=== PATIENT | female | born 1995 | race Two or more races ===

== ENCOUNTER 2020-09-21 12:36 | Observation (INO) | payer MEDICAID, OTHER | END 2020-09-21 14:13 | disposition home or self-care (01) | LOC: LDRP 12:36 | PROVIDERS: ADMIT Specialist; ATTEND Specialist | DX: O46.93 Antepartum hemorrhage, unspecified, third trimester (principal); Z3A.28 28 weeks gestation of pregnancy | CPT/HCPCS: 59025; 76815; 81002; G0378 ==

== ENCOUNTER 2020-10-15 13:11 | Observation (INO) | payer MEDICAID ==
[2020-10-15] MEDS ORDERED: PREN-96 PO (15:35)
== END 2020-10-15 16:50 | disposition home or self-care (01) ==
LOC: LDRP 13:11
PROVIDERS: ADMIT Obstetrics & Gynecology; ATTEND Obstetrics & Gynecology
DX: O42.913 Preterm premature rupture of membranes, unspecified as to length of time between rupture and onset of labor, third trimester (principal); O26.893 Other specified pregnancy related conditions, third trimester; N89.8 Other specified noninflammatory disorders of vagina; Z3A.31 31 weeks gestation of pregnancy
CPT/HCPCS: 59025; 76818; 81002; 84112; G0378; Q0114

== ENCOUNTER 2020-10-20 09:00 | Observation (INO) | payer MEDICAID ==
[~2020-10-20 09:00] MED LIST: PREN-96 PO
== END 2020-10-20 09:51 | disposition home or self-care (01) ==
LOC: LDRP 09:00
PROVIDERS: ADMIT Specialist; ATTEND Specialist
DX: O44.43 Low lying placenta NOS or without hemorrhage, third trimester (principal); O35.8XX0 Maternal care for other (suspected) fetal abnormality and damage, not applicable or unspecified; Z3A.32 32 weeks gestation of pregnancy
CPT/HCPCS: 59025; 76818; 81002; G0378

== ENCOUNTER 2020-10-27 16:12 | Observation (INO) | payer MEDICAID | END 2020-10-27 17:35 | disposition home or self-care (01) | LOC: LDRP 16:12 | PROVIDERS: ADMIT Specialist; ATTEND Specialist | DX: O44.43 Low lying placenta NOS or without hemorrhage, third trimester (principal); O35.8XX0 Maternal care for other (suspected) fetal abnormality and damage, not applicable or unspecified; Z3A.33 33 weeks gestation of pregnancy | CPT/HCPCS: 59025; 76818; 81002; G0378 ==

== ENCOUNTER 2020-11-03 16:45 | Observation (INO) | payer MEDICAID | END 2020-11-03 17:55 | disposition home or self-care (01) | LOC: LDRP 16:45 | PROVIDERS: ADMIT Obstetrics & Gynecology; ATTEND Obstetrics & Gynecology | DX: O26.833 Pregnancy related renal disease, third trimester (principal); N13.30 Unspecified hydronephrosis; Z3A.34 34 weeks gestation of pregnancy | CPT/HCPCS: 59025; 76818; 81002; G0378 ==

== ENCOUNTER 2020-11-10 19:43 | Observation (INO) | payer MEDICAID ==
[~2020-11-10] VITALS: Ht 160 cm; Wt 88.5 kg
[2020-11-10] MEDS ORDERED: PREN-125 OR (20:12)
== END 2020-11-10 22:38 | disposition home or self-care (01) ==
LOC: LDRP 19:43
PROVIDERS: ADMIT Specialist; ATTEND Specialist
DX: O99.891 Other specified diseases and conditions complicating pregnancy (principal); N13.30 Unspecified hydronephrosis; O44.43 Low lying placenta NOS or without hemorrhage, third trimester; Z3A.35 35 weeks gestation of pregnancy; Z91.040 Latex allergy status
CPT/HCPCS: 59025; 76818; 81002; G0378

== ENCOUNTER 2020-11-17 08:32 | Observation (INO) | payer MEDICAID ==
[~2020-11-17 08:32] MED LIST changes: +PREN-125 OR
== END 2020-11-17 17:15 | disposition home or self-care (01) ==
LOC: LDRP 16:05
PROVIDERS: ADMIT Obstetrics & Gynecology; ATTEND Obstetrics & Gynecology
DX: O99.891 Other specified diseases and conditions complicating pregnancy (principal); N13.30 Unspecified hydronephrosis; Z3A.36 36 weeks gestation of pregnancy
CPT/HCPCS: 59025; 76818; 81002; G0378

== ENCOUNTER 2020-11-24 08:53 | Observation (INO) | payer MEDICAID | END 2020-11-24 17:50 | disposition home or self-care (01) | LOC: LDRP 16:15 | PROVIDERS: ADMIT Specialist; ATTEND Specialist | DX: O99.891 Other specified diseases and conditions complicating pregnancy (principal); N13.30 Unspecified hydronephrosis; Z91.040 Latex allergy status; Z3A.37 37 weeks gestation of pregnancy | CPT/HCPCS: 59025; 76818; 81002; 94760; G0378 ==

== ENCOUNTER 2020-12-01 15:40 | Observation (INO) | payer MEDICAID | END 2020-12-01 17:20 | disposition home or self-care (01) | LOC: LDRP 15:40 | PROVIDERS: ADMIT Obstetrics & Gynecology; ATTEND Obstetrics & Gynecology | DX: O26.833 Pregnancy related renal disease, third trimester (principal); N13.30 Unspecified hydronephrosis; Z3A.38 38 weeks gestation of pregnancy | CPT/HCPCS: 59025; 76818; 81002; 94760; G0378 ==

== ENCOUNTER 2020-12-08 10:59 | Observation (INO) | payer MEDICAID | END 2020-12-08 17:35 | disposition home or self-care (01) | LOC: LDRP 16:04 | PROVIDERS: ADMIT Specialist; ATTEND Specialist | DX: O99.891 Other specified diseases and conditions complicating pregnancy (principal); Z3A.39 39 weeks gestation of pregnancy; N13.30 Unspecified hydronephrosis | CPT/HCPCS: 59025; 76818; 81002; G0378 ==

== ENCOUNTER 2020-12-14 10:39 | Observation (INO) | payer MEDICAID | END 2020-12-14 11:49 | disposition home or self-care (01) | LOC: LDRP 10:39 | PROVIDERS: ADMIT Obstetrics & Gynecology; ATTEND Obstetrics & Gynecology | DX: O48.0 Post-term pregnancy (principal); O99.891 Other specified diseases and conditions complicating pregnancy; N13.30 Unspecified hydronephrosis; Z79.899 Other long term (current) drug therapy; Z91.040 Latex allergy status; Z3A.40 40 weeks gestation of pregnancy | CPT/HCPCS: 59025; 76818; 81002; G0378 ==

== ENCOUNTER 2020-12-15 09:15 | Inpatient (IN) | payer MEDICAID ==
[~2020-12-15] VITALS: Ht 30.5 cm; Wt 0.5 kg
[2020-12-15] MEDS ORDERED: WITCH HAZEL-GLYCERIN PAD TOP PRN (10:00)
[2020-12-15] MEDS ORDERED: DERMOPLAST 60ML BOTTLE TOP PRN (10:00)
[2020-12-15] MEDS ORDERED: PROMETHAZINE HCL 25 MG/ML 1ML IV PRN (10:00)
[2020-12-15] MEDS ORDERED: BUTORPHANOL TARTRATE 2 MG/1 ML VIAL IV PRN ×2 (10:00)
[2020-12-15] MEDS ORDERED: PHISODERM TOP SOLN 240ML BTL TOP PRN (10:00)
[2020-12-15] MEDS ORDERED: LACT. RINGERS/OXYTOCIN 20UNITS 500 ML IV ONE ×2 (10:00→10:30)
[2020-12-15] MEDS ORDERED: LACTATED RINGER'S 1,000 ML IV SCH (10:00)
[2020-12-15] MEDS ORDERED: LIDOCAINE 2%HCL (LOCAL ANESTH.) INJ 20ML MDV IJ PRN (10:00)
[2020-12-15 10:41] LABS: Basophils # (auto) 0 10 ^3/uL (0-0.2); Basophils % (auto) 0.2 % (0.0-2.0); Eosinophils # (auto) 0 10 ^3/uL (0-0.8); Eosinophils % (auto) 0.3 % (0.0-7.0); Hematocrit 35.3 % (36.0-46.0); Hemoglobin 12.5 g/dL (12.2-16.2); Lymphocytes # (auto) 1.3 10 ^3/uL (0.4-5.4); Mean Corpuscular Hemoglobin 31.5 pg (28.0-32.0); Mean Corpuscular Hgb Conc. 35.4 g/dL (32.0-36.0); Mean Corpuscular Volume 88.8 fL (80.0-100.0); Monocytes # (auto) 0.5 10 ^3/uL (0-1.3); Monocytes % (auto) 5.6 % (0.0-12.0); Neutrophils # (auto) 7.4 10 ^3/uL (1.6-8.6); Neutrophils % (auto) 79.9 % (37.0-80.0); Platelet Count (auto) 182 10^3/uL (140-450); Red Blood Cells 3.97 10^6/uL (4.0-5.20); Red Cell Distribution Width 14.5 % (11.8-14.3); White Blood Cell 9.2 10^3/uL (4.4-10.8)
[2020-12-15 10:47] LABS: Urine Amorphous Crystal FEW /hpf (None Seen); Urine Bacteria MANY /hpf (None Seen); Urine Blood 2+ /uL (Negative); Urine Hyaline Cast FEW /lpf (0 - 2); Urine WBC 30 /hpf (0 - 5); Urine WBC Clumps PRESENT /hpf (None Seen)
[2020-12-15 10:58] LABS: INR 0.92 (0.9-1.15); Partial Thromboplastin Time 26.3 sec (23.0-31.2)
[2020-12-15 11:06] LABS: Potassium 3.6 mmol/L (3.5-5.1)
[2020-12-15 11:11] LABS: Amphetamine Screen, Urine NEGATIVE (NEGATIVE); Barbiturate Scree,Urine NEGATIVE (NEGATIVE); Benzodiazephine Screen, Urine NEGATIVE (NEGATIVE); Cannabinoid Screen, Urine NEGATIVE (NEGATIVE); Cocaine Screen, Urine NEGATIVE (NEGATIVE); Opiate Scree,Urine NEGATIVE (NEGATIVE); Phencyclidine Screen, Urine NEGATIVE (NEGATIVE)
[2020-12-15 11:12] LABS: Albumin 2.5 g/dL (3.4-5.0); BUN/Creatinine Ratio 19.4; Bilirubin, Total 0.3 mg/dL (0.2-1.0); Calcium 8.7 mg/dL (8.5-10.1); Total Protein 6.8 g/dL (6.4-8.2)
[2020-12-15] MEDS ORDERED: LIDOCAINE HCL 2 %PF INJ 10ML AMP IJ ONE (15:15)
[2020-12-15] MEDS ORDERED: ePHEDrine SULFATE 50 MG/ML AMP IV ONE (15:15)
[2020-12-15] MEDS ORDERED: ROPIVACAINE HCL 200 ML EPI SCH (15:15)
[2020-12-15] MEDS ORDERED: LACTATED RINGER'S 1,000 ML IV ONE (15:15)
[2020-12-15] MEDS ORDERED: fentaNYL CITRATE 100 MCG/2 ML VL IV ONE (15:15)
[2020-12-15] MEDS ORDERED: LACT. RINGERS/OXYTOCIN 20UNITS 1,000 ML IV SCH (18:00)
[2020-12-15] MEDS ORDERED: miSOPROStol 100 mcg TAB SL ONE (19:30)
[2020-12-15] MEDS ORDERED: miSOPROStol 100 mcg TAB PR ONE (19:30)
[2020-12-15] MEDS ORDERED: IBUPROFEN 600 MG TAB PO PRN (20:00)
[2020-12-15 23:00] VITALS: BP 109/63
[2020-12-16 03:10] VITALS: BP 118/57
[2020-12-16 06:06] LABS: RPR Non Reactive (Non Reactive)
[2020-12-16 07:30] VITALS: BP 114/58
[2020-12-16] MEDS ORDERED: miSOPROStol 100 mcg TAB PO ONE (09:42)
[2020-12-16 10:55] VITALS: BP 114/52
[2020-12-16] MEDS ORDERED: ROPIVACAINE HCL 200 ML EPI SCH (15:15)
[2020-12-16 15:30] VITALS: BP 99/60
[2020-12-16 19:30] VITALS: BP 113/67
[2020-12-16 23:00] VITALS: BP 114/74
[2020-12-17 03:00] VITALS: BP 101/60
[2020-12-17 06:39] VITALS: BP 123/77
[2020-12-17 08:20] VITALS: BP 123/77
== END 2020-12-17 08:01 | disposition home or self-care (01) | DRG 560 ==
LOC: LDRP 09:15 → OBSVTOIN 09:55
PROVIDERS: ADMIT Specialist; ATTEND Specialist
PROC: 10E0XZZ Delivery of Products of Conception, External Approach (ICD-10-PCS; principal; 2020-12-15)
PROC: 10907ZC Drainage of Amniotic Fluid, Therapeutic from Products of Conception, Via Natural or Artificial Opening (ICD-10-PCS; 2020-12-15)
PROC: 0KQM0ZZ Repair Perineum Muscle, Open Approach (ICD-10-PCS; 2020-12-15)
PROC: 3E0R3BZ Introduction of Anesthetic Agent into Spinal Canal, Percutaneous Approach (ICD-10-PCS; 2020-12-15)
PROC: 00HU33Z Insertion of Infusion Device into Spinal Canal, Percutaneous Approach (ICD-10-PCS; 2020-12-15)
DX: O70.1 Second degree perineal laceration during delivery (principal); Z20.822 Contact with and (suspected) exposure to COVID-19; Z37.0 Single live birth; Z3A.40 40 weeks gestation of pregnancy
CPT/HCPCS: 36415; 59025; 59409; 62282; 80053; 80307; 81001; 85025; 85610; 85730; 86592; 86762; 86850; 86900; 86901; 87426; 94760; 96360; 96361; 96365; 96366; G0378; J2590

== ENCOUNTER 2023-03-20 07:16 | Emergency (ER) | payer MEDICAID ==
[~2023-03-20] VITALS: Ht 160 cm; Wt 82.7 kg
[2023-03-20 07:23] VITALS: BP 111/82; PULSE 118; RESP 16; O2SAT 96
[2023-03-20] MEDS ORDERED: IBUPROFEN 600 MG TAB PO ONE (08:00)
[2023-03-20 09:09] LABS: Rapid Strep A Screen-Throat Negative
[2023-03-20 09:17] LABS: Rapid Influenza A Negative (Negative); Rapid Influenza B Negative (Negative)
[2023-03-20 09:21] VITALS: TEMP 98
[2023-03-20] MEDS ORDERED: IBUP1TAB5 PO (09:28)
[2023-03-20] MEDS ORDERED: LIDO2SOL26 OR (09:28)
[2023-03-20] MEDS ORDERED: CETI10CA PO (09:28)
== END 2023-03-20 09:46 | disposition home or self-care (01) ==
LOC: ER 07:16
DX: J02.8 Acute pharyngitis due to other specified organisms (principal); B97.89 Other viral agents as the cause of diseases classified elsewhere; Z91.040 Latex allergy status
CPT/HCPCS: 87070; 87804; 87880

== ENCOUNTER 2024-06-07 08:39 | Emergency (ER) | payer MEDICAID ==
[~2024-06-07] VITALS: Ht 160 cm; Wt 84.1 kg
[~2024-06-07 08:39] MED LIST changes: +CETI10CA PO; +IBUP1TAB5 PO; +LIDO2SOL26 OR
--- NOTE | 2024-06-07 09:43 | ED.PDOC ---
GI ASSESSMENT HPI Comments 29 y.o female presents to the ED for a chief complaint of diffused abdominal pain associated with fevers, nausea, vomiting and diarrhea that started 3-4 days ago. Patient describes pain as sharp, constant and has no alleviating or precipitating factors. Patient was seen at urgent care recently for complaint, was tested for URI illnesses and UA analysis which all came back normal. Patient was sent home and advised to take Tylenol as needed but states no relief with medication. She denies any sweats, recent contact exposure, bloody stool, hematemesis, or urinary symptoms. No substance, alcohol or tobacco use. She denies any medical history. Chief Complaint: Abdominal Pain Time Seen by MD: 09:30 Primary Care Provider: MIGUEL ANGEL Reviewed Notes: Nurses Notes, Medications, Allergies Allergies: Coded Allergies: Latex (Verified Allergy, Unknown, 11/10/20) Home Meds Active Scripts Nitrofurantoin Monohydrate Mac (Macrobid) 100 Mg Cap, 100 MG PO BID for 5 Days, #10 CAP Prov:NIXON HERNANDEZ MD 06/07/24 Lidocaine HCl (Mouth-Throat) (Lidocaine HCl Viscous) 2 % Daniella, 10 ML OR Q4HPRN PRN for 5 Days, #120 ML Gargle and spit Prov:BETO CALVILLO NP 03/20/23 Cetirizine Hcl (Zyrtec Allergy) 10 Mg Cap, 10 MG PO DAILY PRN for 10 Days, #10 CAP 0 Refills Prov:BETO CALVILLO NP 03/20/23 Ibuprofen Micronized (Ibuprofen) 600 Mg Tab, 600 MG PO Q6HPRN PRN for 5 Days, #20 TAB Prov:BETO CALVILLO NP 03/20/23 Reported Medications Vitamins W/ Ferrous S (CLINICAL NUTRIENTS PRENAT) Tab, 1 OR for SUPPLEMENT, TAB 11/10/20 Vit W/ Ferrous Fumara ( One Daily) Daily Tab, 1 TAB PO DAILY, #90 TAB 3 Refills 10/15/20 Information Source: Patient Mode of Arrival: Ambulatory Timing: Days (4) Duration: Since onset Quality: Sharp Vomitus: Hard Stool: Loose Severity: Moderate Recent: None Recent Hx of: None Pain Location: Diffuse Modifying Factors: Nothing Associated sign and symptoms: Nausea, Vomiting, Diarrhea, Abdominal Pain Past Medical History PAST MEDICAL HISTORY: Denies Surgical History: Tonsillectomy [employer]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 History Family History Family History: Reviewed,noncontributory to illness Social History Smoker: Non-Smoker Alcohol: Denies ETOH Use Drugs: Denies Drug Use Lives In: Home Constitutional: reports: fever; denies: chills, diaphoresis, fatigue, malaise, sweats, weakness, others EENTM: denies: blurred vision, double vision, ear bleeding, ear discharge, ear drainage, ear pain, ear ringing, eye pain, eye redness, hearing loss, mouth pain, mouth swelling, nasal discharge, nose bleeding, nose congestion, nose pain, photophobia, tearing, throat pain, throat swelling, voice changes, others Respiratory: denies: cough, hemoptysis, orthopnea, SOB at rest, shortness of breath, SOB with excertion, stridor, wheezing, others Cardiovascular: denies: chest pain, dizzy spells, diaphoresis, Dyspnea on exertion, edema, irregular heart beat, left arm pain, lightheadedness, palpitations, PND, syncope, others Gastrointestinal: reports: abdominal pain, diarrhea, nausea, vomiting; denies: abdomen distended, blood streaked bowels, constipated, dysphagia, difficulty swallowing, hematemesis, melena, poor appetite, poor fluid intake, rectal bleeding, rectal pain, others Genitourinary: denies: abnormal vagina bleeding, burning, dyspareunia, dysuria, flank pain, frequency, hematuria, incontinence, pain, , vagina discharge, urgency, others Neurological: denies: dizziness, fainting, headache, left sided numbness, left sided weakness, numbness, paresthesia, pre-existing deficit, right sided numbness, right sided weakness, seizure, speech problems, tingling, tremors, weakness, others Musculoskeletal: denies: back pain, gout, joint pain, joint swelling, muscle pain, muscle stiffness, neck pain, others Integumetry: denies: bruises, change in color, change in hair/nails, dryness, laceration, lesions, lumps, rash, wounds, others Allergic/Immunocompromised: denies: Difficulty Healing, Frequent Infections, Hives, Itching, others Hematologic/Lymphatic: denies: anemia, blood clots, easy bleeding, easy bruising, swollen glands, others Endocrine: denies: excessive hunger, excessive sweating, excessive thirst, excessive urination, flushing, intolerance to cold, intolerance to heat, unexplained weight gain, unexplained weight loss, others Psychiatric: denies: anxiety, bipolar disorder, depression, hopeless, panic disorder, schizophrenia, sleepless, suicidal, others All Other Systems: Reviewed and Negative Physical Exam General Appearance: Moderate Distress HEENT: Normal ENT Inspection, Pharynx Normal, TMs Normal Neck: Full Range of Motion, Non-Tender, Normal, Normal Inspection Respiratory: Chest Non-Tender, Lungs Clear, No Accessory Muscle Use, No Respiratory Distress, Normal Breath Sounds Cardiovascular: No Edema, No JVD, No Murmur, No Gallop, Normal Peripheral Pulses, Regular Rate/Rhythm Breast Exam: Deferred Gastrointestinal: No Organomegaly, Non Tender, No Pulsatile Mass, Normal Bowel Sounds, Soft Genitalia: Deferred Pelvic: Deferred Rectal: Deferred Extremities: No calf tenderness, Normal capillary refill, Normal inspection, Normal range of motion, Non-tender, No pedal edema Musculoskeletal : Apperance: Normal Neurologic: Alert, 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 Was a procedure done?: No GI differential Dx Differential Diagnosis: Constipation, Diverticular disease, Esophagitis, Gastritis/PUD, Gastroenteritis, Inflammatory BD, UTI, Dehydration, Electrolyte Imbalance, Food Poisoning, , Bacterial, Viral X-Ray, Labs, Meds, VS Vital Signs Date Time Temp Pulse Resp B/P (MAP) Pulse Ox O2 Delivery O2 Flow Rate FiO2 06/07/24 12:06 117 18 97 Room Air* 0 21 06/07/24 12:05 98.1 115 20 116/80 (92) 98 98.1 06/07/24 09:06 97.7 110 16 125/79 (94) 97 Lab Test 06/07/24 10:18 06/07/24 09:00 Range/Units White Blood Count 7.3 4.4-10.8 10^3/uL Red Blood Count 4.57 4.0-5.20 10^6/uL Hemoglobin 13.9 12.2-16.2 g/dL Hematocrit 39.5 36.0-46.0 % Mean Corpuscular Volume 86.4 80.0-100.0 fL Mean Corpuscular Hemoglobin 30.3 28.0-32.0 pg Mean Corpuscular Hemoglobin Concent 35.1 32.0-36.0 g/dL Red Cell Distribution Width 13.1 11.8-14.3 % Platelet Count 231 140-450 10^3/uL Mean Platelet Volume 7.4 6.9-10.8 fL Neutrophils (%) (Auto) 76.6 37.0-80.0 % Lymphocytes (%) (Auto) 15.9 10.0-50.0 % Monocytes (%) (Auto) 7.1 0.0-12.0 % Eosinophils (%) (Auto) 0.1 0.0-7.0 % Basophils (%) (Auto) 0.3 0.0-2.0 % Neutrophils # (Auto) 5.6 1.6-8.6 10 ^3/uL Lymphocytes # (Auto) 1.2 0.4-5.4 10 ^3/uL Monocytes # (Auto) 0.5 0-1.3 10 ^3/uL Eosinophils # (Auto) 0 0-0.8 10 ^3/uL Basophils # (Auto) 0 0-0.2 10 ^3/uL Nucleated Red Blood Cells 0.1 % Sodium Level 135 L 136-145 mmol/L Potassium Level 3.3 L 3.5-5.1 mmol/L Chloride Level 98 98-107 mmol/L Carbon Dioxide Level 28 20-31 mmol/L Anion Gap 9 5-15 Blood Urea Nitrogen 8 L 9-23 mg/dL Creatinine 0.80 0.550-1.02 mg/dL Glomerular Filtration Rate Calc 103 >90 mL/min BUN/Creatinine Ratio 10.0 10.0-20.0 Serum Glucose 107 H 74-106 mg/dL Calcium Level 9.7 8.7-10.4 mg/dL Urine Color Yellow Yellow Urine Clarity Turbid H Clear Urine pH 6.5 5.0-9.0 Urine Specific [place] 1.022 1.001-1.035 Urine Protein 1+ H Negative Urine Ketones Negative Negative Urine Blood 2+ H Negative /uL Urine Nitrite Negative Negative Urine Bilirubin Negative Negative Urine Urobilinogen Normal Negative mg/dL Urine Leukocyte Esterase Trace Negative /uL Urine RBC 13 0 - 4 /hpf Urine WBC 7 0 - 5 /hpf Urine Squamous Epithelial Cells Mod <5 /hpf Urine Bacteria Few H None Seen /hpf Urine Mucus Few None Seen Urine Glucose Normal Normal mg/dL Current Medications Medications (Trade) Dose Ordered Sig/Lloyd Route Start Time Stop Time Status Last Admin Potassium Bicarbonate (Klor-Con/Ef) 25 meq ONCE ONCE PO 06/07/24 12:00 06/07/24 12:01 DC 06/07/24 12:04 Patient alert. Complaining of abdominal pain. Vitals stable. Answering all questions. Abdomen is soft nontender. Potassium is low. Was given potassium. Continues to have abdominal pain. Reviewed her history. Explained to the patient. Continue cardiac monitoring. No chest pain. No leg swelling. No shortness a breath. UA shows UTI. Heart rate upon discharge within normal limits. She is not on control. She is anxious. Does not meet any criteria. No discoloration. UA shows UTI. Was given prescription of Macrobid antibiotic. Was told to follow up with her primary care physician. Was told to come back if there is any problem. Time of 1ST Reevaluation: 09:39 Reevaluation 1ST: Unchanged Patient Education/Counseling: Diagnosis, Treatment, Prognosis Family Education/Counseling: No Family Present Departure 1 Departure Time of Disposition: 11:45 Impression: Primary Impression: Urinary tract infection Qualified Codes: N30.00 - Acute cystitis without hematuria Additional Impressions: Pyelonephritis Hypokalemia Disposition: 01 HOME / SELF CARE / HOMELESS Condition: Good e-Prescriptions Nitrofurantoin Monohydrate Mac (Macrobid) 100 Mg Cap 100 MG PO BID for 5 Days, #10 CAP Prov: NIXON HERNANDEZ MD 06/07/24 Discharged With: Self Critical Care Note Critical Care Time?: No Stability Stability form required: No I personally scribed for NIXON HERNANDEZ MD ([email or web address]) on 06/07/24 at 09:43. Electronically submitted by Aspen Stewart ([facility]). NIXON HERNANDEZ MD Jun 07, 2024 09:43
[2024-06-07 10:42] LABS: Basophils # (auto) 0 10 ^3/uL (0-0.2); Basophils % (auto) 0.3 % (0.0-2.0); Eosinophils # (auto) 0 10 ^3/uL (0-0.8); Eosinophils % (auto) 0.1 % (0.0-7.0); Hematocrit 39.5 % (36.0-46.0); Hemoglobin 13.9 g/dL (12.2-16.2); Lymphocytes # (auto) 1.2 10 ^3/uL (0.4-5.4); Lymphocytes % (auto) 15.9 % (10.0-50.0); Mean Corpuscular Hemoglobin 30.3 pg (28.0-32.0); Mean Corpuscular Hgb Conc. 35.1 g/dL (32.0-36.0); Mean Corpuscular Volume 86.4 fL (80.0-100.0); Monocytes # (auto) 0.5 10 ^3/uL (0-1.3); Monocytes % (auto) 7.1 % (0.0-12.0); Neutrophils # (auto) 5.6 10 ^3/uL (1.6-8.6); Neutrophils % (auto) 76.6 % (37.0-80.0); Nucleated Red Blood Cells % 0.1 %; Platelet Count (auto) 231 10^3/uL (140-450); Red Blood Cells 4.57 10^6/uL (4.0-5.20); Red Cell Distribution Width 13.1 % (11.8-14.3); White Blood Cell 7.3 10^3/uL (4.4-10.8)
[2024-06-07 10:48] LABS: Chloride 98 mmol/L (98-107); Potassium 3.3 mmol/L (3.5-5.1); Sodium 135 mmol/L (136-145)
[2024-06-07 10:49] LABS: Anion Gap 9 (5-15); Calcium 9.7 mg/dL (8.7-10.4); Carbon Dioxide 28 mmol/L (20-31)
[2024-06-07 10:54] LABS: Blood Urea Nitrogen 8 mg/dL (9-23); Glucose 107 mg/dL (74-106)
[2024-06-07] MEDS: POTASSIUM EFFERVESENT TAB 25 MEQ PO ONE (12:04)
[2024-06-07 12:05] VITALS: BP 116/80; TEMP 98.1
[2024-06-07 12:06] VITALS: PULSE 117; RESP 18; O2SAT 97
[2024-06-07 12:19] LABS: Urine Bacteria FEW /hpf (None Seen); Urine Blood 2+ /uL (Negative); Urine Clarity Turbid (Clear); Urine Color Yellow (Yellow); Urine Mucus FEW (None Seen); Urine Protein, UAD 1+ (Negative); Urine Specific Gravity 1.022 (1.001-1.035); Urine Urobilinogen Normal (Negative); Urine WBC 7 /hpf (0 - 5); Urine pH 6.5 (5.0-9.0)
[2024-06-07] MEDS ORDERED: NITR-87 PO (13:33)
== END 2024-06-07 14:50 | disposition home or self-care (01) ==
LOC: ER 08:39
DX: N39.0 Urinary tract infection, site not specified (principal); E87.6 Hypokalemia; N12 Tubulo-interstitial nephritis, not specified as acute or chronic; Z90.89 Acquired absence of other organs
CPT/HCPCS: 36415; 80048; 81001; 85025